=== PATIENT | female | born 1990 | race Caucasian/White ===

== ENCOUNTER 2024-06-07 20:26 | Emergency (ER) | payer OTHER ==
[2024-06-07 20:35] VITALS: BP 119/79; RESP 18; TEMP 98.3; BMI 22.6
[2024-06-07 21:40] VITALS: PULSE 96
== END 2024-06-07 21:51 | disposition home or self-care (01) ==
LOC: JER 20:26
DX: R07.9 Chest pain, unspecified (principal); R00.0 Tachycardia, unspecified
CPT/HCPCS: 93005; 93010; 99283-25